=== PATIENT | female | born 1945 | race Asian ===

== ENCOUNTER 2017-02-25 17:18 | Emergency (ER) | payer MEDICAID ==
[~2017-02-25] VITALS: Ht 149.9 cm; Wt 61.2 kg
[2017-02-25 20:43] VITALS: BP 115/55
== END 2017-02-25 20:43 | disposition home or self-care (01) ==
LOC: ED 17:18 → EDBD 17:18 → ED 20:43
DX: S01.01XA Laceration without foreign body of scalp, initial encounter (principal); J45.909 Unspecified asthma, uncomplicated; I10 Essential (primary) hypertension; E11.9 Type 2 diabetes mellitus without complications; M19.90 Unspecified osteoarthritis, unspecified site; E78.00 Pure hypercholesterolemia, unspecified; Z90.89 Acquired absence of other organs; Z88.0 Allergy status to penicillin; Z88.2 Allergy status to sulfonamides; W01.10XA Fall on same level from slipping, tripping and stumbling with subsequent striking against unspecified object, initial encounter; Y93.89 Activity, other specified; Y92.89 Other specified places as the place of occurrence of the external cause; Y99.8 Other external cause status